=== PATIENT | female | born 1955 | race Caucasian/White ===

== ENCOUNTER → 2020-02-16 | Outpatient (CLI) | payer OTHER | LOC: SJCVC 14:42 | PROVIDERS: ATTEND Internal Medicine Cardiovascular Disease | DX: I48.91 Unspecified atrial fibrillation (principal); R94.31 Abnormal electrocardiogram [ECG] [EKG]; D68.69 Other thrombophilia; I10 Essential (primary) hypertension; R73.03 Prediabetes; E78.00 Pure hypercholesterolemia, unspecified; G47.33 Obstructive sleep apnea (adult) (pediatric); Z99.89 Dependence on other enabling machines and devices; Z79.899 Other long term (current) drug therapy ==

== ENCOUNTER → 2020-02-19 | Outpatient (CLI) | payer OTHER | LOC: SJCVCIMAG 08:35 | PROVIDERS: ATTEND Internal Medicine Cardiovascular Disease | DX: I07.1 Rheumatic tricuspid insufficiency (principal); I11.9 Hypertensive heart disease without heart failure; I48.0 Paroxysmal atrial fibrillation; I25.10 Atherosclerotic heart disease of native coronary artery without angina pectoris; E78.00 Pure hypercholesterolemia, unspecified; D68.59 Other primary thrombophilia; Z79.899 Other long term (current) drug therapy ==

== ENCOUNTER → 2020-02-29 | Outpatient (CLI) | payer OTHER ==
[~2020-02-29] MED LIST: AMIODARONE HCL400 MG PO; BENAZEPRIL 10 M10 MG PO; ELIQUIS5 M1 PO; HYDROCHLOROTH12.5 M1 PO; HYTRIN 2MG CAPSU2 M1 PO; LIPITOR40 MG PO; NORVASC 2.5 MG2.5 M1 PO; TOPROL XL100 MG PO
== END ==
LOC: LAB 13:34
PROVIDERS: ATTEND Internal Medicine Cardiovascular Disease
DX: Z01.812 Encounter for preprocedural laboratory examination (principal); Z20.828 Contact with and (suspected) exposure to other viral communicable diseases

== ENCOUNTER → 2020-03-03 | Outpatient (CLI) | payer OTHER ==
[~2020-03-03] VITALS: Ht 165.1 cm; Wt 126.6 kg
[2020-03-03 07:08] VITALS: BP 148/84
--- NOTE | 2020-03-03 09:44 | TEE ---
[facility] [place] [address] TRANSESOPHAGEAL ECHOCARDIOGRAM Name: JULIAN DERAS Room #: REG MARISELA [facility]#: [id number] Admission: 03/03/20 Attend Phys: Fareed Burgos MD, Discharge: Date of : 53 Report #: [id number] THIS REPORT FOR: cc: [facility] - Clinic physician unknown [facility] - [facility] physician unknown Fareed Burgos MD [facility] ~ APPROVED REPORT Study performed: 03/03/2020 08:00:24 EXAM: Transesophageal Echocardiogram with Doppler and Cardioversion Patient Location: Out-Patient Room #: 9 Status: routine BSA: 2.26 HR: 75 bpm BP: 169/88 mmHg Rhythm: Atrial Fibrillation Other Information Study Quality: Excellent Indications Atrial Fibrillation Echo Enhancing Agent Indication: Rule out Shunt Agent(s) / Amount(s) Used: Agitated Saline 7 cc Procedure After obtaining informed consent, patient underwent transesophageal echo in the [employer]. Type of Sedation : Conscious Sedation Sedation was administered by Nurse. Sedation start time: 814 Case end Time: 829 Sedation was achieved intravenously with: Versed (6 mg) Fentanyl (50) Transesophageal probe was inserted and advanced into esophagus without difficulty by Fareed Burgos MD. Echo enhancement indication: R/O Septal defect. Echo enhancement agent administered: Agitated Saline The BLAIR was performed without complications. Synchronized Cardioversion attempted: Successful [facility] [address] [place] [address] TRANSESOPHAGEAL ECHOCARDIOGRAM Name: JULIAN DERAS TAB Room #: REG CL [facility]#: [id number] Admission: 03/03/20 Attend Phys: Fareed Burgos, Discharge: Date of : 53 Report #: [id number] Synchronized Cardioversion acheived with 120 then 200 Joules after 2 attempt(s). Rhythm following Synchronized Cardioversion: Normal Sinus Rhythm Throughout the procedure, the blood pressure, pulse oximetry, cardiac rhythm, and rate were monitored. The patient tolerated the procedure without adverse effects. Recovery from conscious sedation was uneventful and vital signs were stable. Atrial fibrillation returned after about 5 to 7 minutes following cardioversion. Left Ventricle The left ventricle is normal size. There is normal LV segmental wall motion. There is normal left ventricular wall thickness. The left ventricular systolic function is normal. The left ventricular ejection fraction is within the normal range. LVEF is 55%. Right Ventricle The right ventricle is normal size. The right ventricular systolic function is normal. Atria Left atrium is severely dilated. No thrombus is visualized in the left atrium or appendage. No shunting by contrast bubble injection Right atrium is at the upper limits of normal. Aortic Valve The aortic valve is normal in structure, trileaflet. Trace aortic regurgitation. There is no aortic valvular stenosis. Mitral Valve The mitral valve is normal in structure. Mild mitral regurgitation. No evidence of mitral valve stenosis. Tricuspid Valve The tricuspid valve is normal in structure. There is no tricuspid valve regurgitation noted. Pulmonic Valve The pulmonary valve is normal in structure. There is no pulmonic valvular regurgitation. Great Vessels The aortic root is normal in size. The ascending aorta is normal in size. IVC is normal in size and collapses >50% with inspiration. [facility] [address] [place] [address] TRANSESOPHAGEAL ECHOCARDIOGRAM Name: JULIAN DERAS TAB Room #: REG CL [facility] [id number] Admission: 03/03/20 Attend Phys: Fareed Burgos, Discharge: Date of : 53 Report #: [id number] Pericardium There is no pericardial effusion. <Conclusion> The left ventricular systolic function is normal. There is normal LV segmental wall motion. LVEF is 55%. Left atrium is severely dilated. No thrombus is visualized in the left atrium or appendage. No shunting by contrast bubble injection The aortic valve is normal in structure, trileaflet. Trace aortic regurgitation, no stenosis. The mitral valve is normal in structure. Mild mitral regurgitation. There is no pericardial effusion. Successful cardioversion of atrial fibrillation to sinus rhythm following 2 biphasic synchronous joules shocks (120J, 200J). Atrial fibrillation recurred after about 5 minutes following cardioversion. <ELECTRONICALLY SIGNED> By: Fareed Burgos MD, [facility] 03/03/20 0943 [id number] [id number] Fareed Burgos MD, FACC /INF
== END | disposition home or self-care (01) ==
LOC: CATH 06:19
PROVIDERS: ATTEND Internal Medicine
DX: I48.0 Paroxysmal atrial fibrillation (principal); I34.0 Nonrheumatic mitral (valve) insufficiency; I10 Essential (primary) hypertension; E78.00 Pure hypercholesterolemia, unspecified; D68.59 Other primary thrombophilia; Z79.899 Other long term (current) drug therapy; Z90.710 Acquired absence of both cervix and uterus; Z98.890 Other specified postprocedural states

== ENCOUNTER → 2020-03-10 | Outpatient (CLI) | payer OTHER | LOC: SJCVC 13:22 | PROVIDERS: ATTEND Internal Medicine Cardiovascular Disease | DX: I48.0 Paroxysmal atrial fibrillation (principal); R94.31 Abnormal electrocardiogram [ECG] [EKG]; E78.00 Pure hypercholesterolemia, unspecified; I10 Essential (primary) hypertension; D68.59 Other primary thrombophilia; Z79.899 Other long term (current) drug therapy ==

== ENCOUNTER → 2020-04-13 | Outpatient (CLI) | payer OTHER | LOC: LAB 10:40 | PROVIDERS: ATTEND Internal Medicine Cardiovascular Disease | DX: Z01.812 Encounter for preprocedural laboratory examination (principal); Z20.828 Contact with and (suspected) exposure to other viral communicable diseases ==

== ENCOUNTER → 2020-04-18 | Outpatient (CLI) | payer OTHER ==
[~2020-04-18] VITALS: Ht 165.1 cm; Wt 122.7 kg
[~2020-04-18] MED LIST changes: +ELIQUIS5 MG PO; +HYDROCHLOROTHIA25 M2 PO; +LOTENSIN40 MG PO
--- NOTE | ~2020-04-18 | P ---
[facility] [place] [address] PROCEDURE REPORT Name: JULIAN DERAS TAB Room #: REG ROSANAWillard Couch#: [id number] Admission: 04/18/20 Attend Phys: Dong Pineda MD Discharge: Date of : 53 Report #: [id number] THIS REPORT FOR: cc: [facility] - Clinic physician unknown [facility] - Clinic physician unknown Dong Pineda MD ~ CC: JOSIAS unknown Dong Pineda PREOPERATIVE DIAGNOSIS: Atrial fibrillation. POSTOPERATIVE DIAGNOSIS: Atrial fibrillation. DESCRIPTION OF PROCEDURE: The patient underwent informed consent. She was prepped in a standard fashion with patches placed in AP position. She was sedated by the Anesthesiology service and once sedated, underwent a 200 joule synchronized cardioversion with faith of sinus rhythm. There were no procedure related complications. CONCLUSIONS: Successful DC cardioversion with faith of sinus rhythm. By: 1502 10 Dong Pineda MD /nt
[2020-04-18 11:25] VITALS: BP 179/100
[2020-04-18 11:34] LABS: ABSOLUTE NEUTROPHILS 5.5 thou/uL (1.4-8.2); BASOPHILS 0.4 % (0.0-2.0); EOSINOPHILS 0.9 % (0.0-3.0); HEMATOCRIT 43.8 % (37.0-47.0); HEMOGLOBIN 14.9 gm/dL (12.0-15.0); LYMPHOCYTES 12.2 % (24.0-44.0); MCH 32.7 pg (26.0-34.0); PLATELET COUNT 151 thou/uL (150-400); POLYS 80.5 % (36.0-66.0); RBC 4.56 mil/uL (4.20-5.00); RDW 13.8 % (10.5-14.5); WBC 6.8 thou/uL (4.0-11.0)
[2020-04-18 11:39] LABS: CALCIUM 9.2 mg/dL (8.5-10.1); POTASSIUM 3.7 mmol/L (3.5-5.1)
[2020-04-18 12:16] LABS: INR 1.1; PROTIME 11.1 Seconds (9.3-11.4)
--- NOTE | 2020-04-18 15:01 | NUR ---
PT RESTING IN BED. SON AT BEDSIDE. CONTINUES IN NSR. STATES SHE FEELS REALLY GOOD. BP DOWN.
== END | disposition home or self-care (01) ==
LOC: CATH 09:20
PROVIDERS: ATTEND Internal Medicine Cardiovascular Disease
DX: I48.91 Unspecified atrial fibrillation (principal); I10 Essential (primary) hypertension; E78.5 Hyperlipidemia, unspecified; G47.33 Obstructive sleep apnea (adult) (pediatric); E66.09 Other obesity due to excess calories; I48.92 Unspecified atrial flutter; Z98.890 Other specified postprocedural states; Z79.899 Other long term (current) drug therapy; Z96.653 Presence of artificial knee joint, bilateral; Z90.710 Acquired absence of both cervix and uterus; Z96.662 Presence of left artificial ankle joint; Z79.01 Long term (current) use of anticoagulants
CPT/HCPCS: 62110; 62900

== ENCOUNTER → 2020-05-24 | Outpatient (CLI) | payer OTHER | LOC: SJCVC 12:52 | PROVIDERS: ATTEND Internal Medicine Cardiovascular Disease | DX: I48.0 Paroxysmal atrial fibrillation (principal); R94.31 Abnormal electrocardiogram [ECG] [EKG]; R00.1 Bradycardia, unspecified; I44.0 Atrioventricular block, first degree; I10 Essential (primary) hypertension; E66.01 Morbid (severe) obesity due to excess calories; Z79.899 Other long term (current) drug therapy ==